=== PATIENT | male | born 1995 ===

== ENCOUNTER → 2018-10-06 21:19 | Outpatient (REF) | payer OTHER, SELFPAY ==
[2018-10-09 13:03] LABS: QuantiFERON TB NEGATIVE (Negative)
== END ==
LOC: LAB 21:19
PROVIDERS: Visit Provider Internal Medicine
DX: R76.12 Nonspecific reaction to cell mediated immunity measurement of gamma interferon antigen response without active tuberculosis (principal)
CPT/HCPCS: 86480